=== PATIENT | male | born 1950 | race Caucasian/White ===

== ENCOUNTER 2016-09-15 15:07 | Observation (INO) | payer OTHER ==
[~2016-09-15] VITALS: Ht 175.3 cm; Wt 97.0 kg
[~2016-09-15 15:07] MED LIST: ALPR.25 PO; ASPI81TA82 PO; CEPH500C3 PO; CORE25TA PO; COUM5TAB PO; DIGO.125 PO; ENAL10TA7 PO; FURO20TA PO; GEMF600 PO; GLUC10TA3 PO; LANTUS2P SC; NITR.2T TD; NITR0.3D TD; NITR0.4S SL; NOVOLOGP2 SQ; RANO500 PO; SIMV20 PO; TRAM100T19 PO
[2016-09-15 15:15] VITALS: BP 128/83; PULSE 75; RESP 22; TEMP 98.3; O2SAT 89
[2016-09-15 15:20] VITALS: RESP 20; O2SAT 90
[2016-09-15] MEDS ORDERED: SODIUM CHLORIDE 0.9% FLUSH 5 ML FLUSH IVF PRN ×3 (15:30→18:15)
--- NOTE | 2016-09-15 15:43 | PD ---
HPI Chief Complaint: Chest Pain Time Seen by Provider: 15:41 Travel History International Travel<30 days: No Contact w/Intl Traveler<30days: No Traveled to known affect area: No History of Present Illness HPI Patient comes in complaining of left-sided chest pain that began around 7:30 this morning. Patient's pain is constant however does intensify from time to time. The patient reports associated shortness of breath and diaphoresis with this. Denies any nausea, vomiting, or headache. Patient reports left arm and neck tingling sensation similar to previous heart attacks. Patient reports he took his aspirin this morning and has a nitroglycerin patch on this had no change in his symptoms. Patient's last cardiac catheter was November [address] Barros. Patient has a AICD in place but denies any firing of the defibrillator. Patient was also reports his blood sugars have not been well controlled secondary to insurance and not being able to get his medication and is been running in the 300s. PFSH Past Medical History Arthritis: No Asthma: No Blood Disorders: No Anxiety: No Depression: No Heart Rhythm Problems: Yes Cancer: No Cardiac Catheterization: Yes (X25) Cardiovascular Problems: Yes (EF LESS THAN 30%, AFIB, CAD, [place], 2 CORONARY STENTS 1995, CABG 2001) High Cholesterol: Yes Chest Pain: Yes Congestive Heart Failure: Yes COPD: No Cerebrovascular Accident: No Diabetes: Yes Patient Takes Glucophage: No Diminished Hearing: No Endocrine: Yes Gastrointestinal Disorders: No GERD: Yes Glaucoma: No Genitourinary: Yes (Kidney Stones) Headaches: No Hepatitis: No Hiatal Hernia: No Hypertension: Yes Immune Disorder: No Implanted Vascular Access Dvce: Yes Kidney Stones: Yes Medical other: Yes (BELLS PALSY LEFT EYE) Musculoskeletal: Yes (Bilateral Back Fusion in 1974) Neurologic: Yes (CVA, [place] Palsy) Psychiatric: No Reproductive: No Respiratory: Yes (SLEEP APNEA WITH CPAP AT NIGHT CHF) Myocardial Infarction: Yes (X3) Renal Failure: No Seizures: No Sickle Cell Disease: No Sleep Apnea: Yes (CPAP at night) Thyroid Disease: No Ulcer: No Tetanus Vaccination: > 5 Years Influenza Vaccination: No Past Surgical History Abdominal Surgery: No AICD: No Body Medical Devices: Pacemaker/AICD Cardiac Surgery: Yes (PACEMAKER/AICD INSERTION X2 [employer] 05/31 ) Coronary Artery Bypass Graft: Yes (CABG X 3 VESSELS 2001) Ear Surgery: No Endocrine Surgery: No Eye Surgery: No Genitourinary Surgery: No Gynecologic Surgery: No Neurologic Surgery: No Oral Surgery: No Pacemaker: No Thoracic Surgery: No Other Surgery: Yes Social History Alcohol Use: Yes (OCCASIONAL BEER) Tobacco Use: No (QUIT 1986) Substance Use: Yes (Marijuana as a child) Allergies-Medications (Allergen,Severity, Reaction): Coded Allergies: No Known Allergies (Verified , 09/15/16) Uncoded Allergies: HAYFEVER (Allergy, Mild, Cough, 07/06/09) Reported Meds & Prescriptions Reported Meds & Active Scripts Active Reported Carvedilol 6.25 Mg Tab 6.25 Mg PO BID Alprazolam 0.25 Mg Tab 0.25 Mg PO TID Aspirin DR (Aspirin) 81 Mg Tabdr 81 Mg PO DAILY Digoxin 0.125 Mg Tab 0.125 Mg PO DAILY Enalapril (Enalapril Maleate) 5 Mg Tab 5 Mg PO BID Furosemide 20 Mg Tab 20 Mg PO DAILY Glipizide 5 Mg Tab 5 Mg PO AC DINNER Take 30 minutes before a meal Glipizide 10 Mg Tab 10 Mg PO DAILYAC Take 30 minutes before a meal Nitro-Dur Patch 24 HR (Nitroglycerin) 0.2 Mg/Hr Patch 0.2 Mg T-DERMAL DAILY Tramadol (Tramadol HCl) 50 Mg Tab 50 Mg PO DAILY Warfarin 5 Mg Tab 5 Mg PO HS Atorvastatin (Atorvastatin Calcium) 40 Mg Tab 40 Mg PO HS Novolin R Inj (Insulin Human Regular) 1,000 Unit/10 Ml Vial Unknown Dose SQ TIDAC Max dose at bedtime:( )units; sugars less than 70,(0) units; sugars 150-199,(5)unit; sugars 200-249,(10)units; sugars 250-299,(15) units; sugars 300-349,(20)units; sugars greater than 349,(25)units Novolin N Inj (Insulin Human NPH) 1,000 Unit/10 Ml Vial 30 Units SQ BID Review of Systems Except as stated in HPI: all other systems reviewed are Neg Physical Exam Narrative GENERAL: Well-developed, overly nourished, in no acute distress, and non-ill appearing. SKIN: Warm and dry. HEAD: Atraumatic. Normocephalic. EYES: Pupils equal and round. EOMI. No scleral icterus. No injection or drainage. ENT: No nasal bleeding or discharge. Mucous membranes pink and moist. NECK: Trachea midline. Supple. No nuclear rigidity. CARDIOVASCULAR: Regular rate and rhythm. No murmur appreciated. Radial pulses 2+, intact, and equal bilaterally. RESPIRATORY: No accessory muscle use. No respiratory distress. Clear to auscultation. Breath sounds equal bilaterally. MUSCULOSKELETAL: No obvious deformities. No clubbing. No cyanosis. No edema. Full range of motion. NEUROLOGICAL: Awake and alert. No obvious cranial nerve deficits. Motor grossly within normal limits. Normal speech. PSYCHIATRIC: Appropriate mood and affect; insight and judgment normal. Data Data Last Documented VS Vital Signs Date Time Temp Pulse Resp B/P Pulse Ox O2 Delivery O2 Flow Rate FiO2 09/15/16 15:20 20 90 Room Air 09/15/16 15:20 2 09/15/16 15:15 98.3 75 128/83 Orders Electrocardiogram (09/15/16 15:24) B-Type Natriuretic Peptide (09/15/16 15:24) Complete Blood Count With Diff (09/15/16 15:24) Comprehensive Metabolic Panel (09/15/16 15:24) Prothrombin Time / Inr (Pt) (09/15/16 15:24) Chest, Single Ap (09/15/16 15:24) Ecg Monitoring (09/15/16 15:24) Iv Access Insert/Monitor (09/15/16 15:24) Oximetry (09/15/16 15:24) Oxygen Administration (09/15/16 15:24) Sodium Chloride 0.9% Flush (Ns Flush) (09/15/16 15:30) Ckmb (Isoenzyme) Profile (09/15/16 15:23) Magnesium (Mg) (09/15/16 15:23) Act Partial Throm Time (Ptt) (09/15/16 15:23) Troponin I (09/15/16 15:23) Bilateral Bp Monitoring (09/15/16 15:23) Sodium Chloride 0.9% Flush (Ns Flush) (09/15/16 15:30) Morphine Inj (Morphine Inj) (09/15/16 17:15) Ondansetron Inj (Zofran Inj) (09/15/16 17:15) Admit Order (Ed Use Only) (09/15/16 18:11) Labs Laboratory Tests Test 09/15/16 15:45 White Blood Count 10.0 TH/MM3 Red Blood Count 6.15 MIL/MM3 Hemoglobin 17.6 GM/DL Hematocrit 52.4 % Mean Corpuscular Volume 85.2 FL Mean Corpuscular Hemoglobin 28.6 PG Mean Corpuscular Hemoglobin 33.6 % Concent Red Cell Distribution Width 14.0 % Platelet Count 231 TH/MM3 Mean Platelet Volume 9.0 FL Neutrophils (%) (Auto) 59.4 % Lymphocytes (%) (Auto) 29.5 % Monocytes (%) (Auto) 8.4 % Eosinophils (%) (Auto) 1.4 % Basophils (%) (Auto) 1.3 % Neutrophils # (Auto) 6.0 TH/MM3 Lymphocytes # (Auto) 3.0 TH/MM3 Monocytes # (Auto) 0.8 TH/MM3 Eosinophils # (Auto) 0.1 TH/MM3 Basophils # (Auto) 0.1 TH/MM3 CBC Comment DIFF FINAL Differential Comment Prothrombin Time 14.0 SEC Prothromb Time International 1.3 RATIO Ratio Activated Partial 28.1 SEC Thromboplast Time Sodium Level 139 MEQ/L Potassium Level 3.8 MEQ/L Chloride Level 99 MEQ/L Carbon Dioxide Level 33.3 MEQ/L Anion Gap 7 MEQ/L Blood Urea Nitrogen 20 MG/DL Creatinine 1.07 MG/DL Estimat Glomerular Filtration 70 ML/MIN Rate Random Glucose 74 MG/DL Calcium Level 8.7 MG/DL Magnesium Level 2.3 MG/DL Total Bilirubin 0.7 MG/DL Aspartate Amino Transf 17 U/L (AST/SGOT) Alanine Aminotransferase 34 U/L (ALT/SGPT) Alkaline Phosphatase 59 U/L Total Creatine Kinase 96 U/L Troponin I LESS THAN 0.02 NG/ML B-Type Natriuretic Peptide 6 PG/ML Total Protein 8.0 GM/DL Albumin 4.0 GM/DL MDM Medical Decision Making Medical Screen Exam Complete: Yes Emergency Medical Condition: Yes Interpretation(s) EKG reviewed by Dr. Gomes shows ventricular paced rhythm at 72. No STEMI. Differential Diagnosis Acute coronary syndrome, pneumonia, CHF, chest pain, unstable angina, other Narrative Course Patient's exam. Initial laboratory neurological status were obtained and reviewed. Discussed patient with Dr. Gomes, who saw and evaluated the patient recommends having the patient admitted. Discussed All Findings and Plans of Care with Patient Who Is Agreeable for Admission. All Questions Were Answered. Physician Communication Physician Communication [phone] Salgado ror engineer on-call for Dr. Barros, who recommends having patient placed in the chest pain center for further treatment and evaluation. Diagnosis Primary Impression: Chest pain Qualified Code: R07.9 - Chest pain, unspecified type Admitting Information Admitting Physician Requests: Observation Condition: Stable Eagle Bowman Sep 15, 2016 15:43
--- NOTE | 2016-09-15 15:54 | RADRPT ---
EXAM DATE/TIME: 09/15/2016 15:26 [facility] COMPARISON: CHEST SINGLE AP, June 11, 2015, 18:14. INDICATIONS : Chest pain. MEDICAL HISTORY : Chronic obstructive pulmonary disease. SURGICAL HISTORY : CABG. Pacemaker. ENCOUNTER: Subsequent ACUITY: 2 days PAIN SCORE: 5/10 LOCATION: Left middle chest FINDINGS: Prior median sternotomy CABG is appreciated with AICD pacing device overlying the left hemithorax unc hanged. Lung sung are clear CONCLUSION: No acute disease. No significant change has occurred. Stan Floyd MD on September 15, 2016 at 15:52 Board Certified Radiologist. This report was verified electronically.
[2016-09-15 16:03] LABS: BASOPHIL # 0.1 TH/MM3 (0-0.2); BASOPHIL % 1.3 % (0.0-2.0); EOSINOPHIL # 0.1 TH/MM3 (0-0.4); EOSINOPHIL % 1.4 % (0.0-4.0); HEMATOCRIT 52.4 % (39.0-51.0); HEMO FLAGS DIFF FINAL; LYMPH % 29.5 % (9.0-44.0); MEAN CELL VOLUME 85.2 FL (80.0-100.0); MEAN CORPUSCULAR HEMOGLOBIN 28.6 PG (27.0-34.0); MEAN CORPUSCULAR HGB CONC 33.6 % (32.0-36.0); MONO % 8.4 % (0.0-8.0); NEUT % 59.4 % (16.0-70.0); PLATELET COUNT 231 TH/MM3 (150-450); RED BLOOD COUNT 6.15 MIL/MM3 (4.50-5.90)
[2016-09-15 16:13] LABS: APTT (PATIENT) 28.1 SEC (24.3-30.1)
[2016-09-15 16:19] LABS: INTERNATIONAL NORMALIZED RATIO 1.3 RATIO
[2016-09-15 16:30] LABS: ALKALINE PHOSPHATASE 59 U/L (45-117); ALT (GPT) 34 U/L (12-78); ANION GAP 7 MEQ/L (5-15); AST (GOT) 17 U/L (15-37); BICARBONATE 33.3 MEQ/L (21.0-32.0); BLOOD UREA NITROGEN 20 MG/DL (7-18); CHLORIDE 99 MEQ/L (98-107); GLOMERULAR FILTRATION RATE 70 ML/MIN (>89); POTASSIUM 3.8 MEQ/L (3.5-5.1); SODIUM (NA) 139 MEQ/L (136-145); TOTAL BILIRUBIN ADULT 0.7 MG/DL (0.2-1.0)
[2016-09-15] MEDS ORDERED: NOVORP2 SQ (16:34)
[2016-09-15] MEDS ORDERED: NOVONP2 SQ (16:34)
[2016-09-15] MEDS ORDERED: WARF-23 PO (16:40)
[2016-09-15] MEDS ORDERED: GLIP10TA6 PO (16:40)
[2016-09-15] MEDS ORDERED: TRAM50TA PO (16:40)
[2016-09-15] MEDS ORDERED: FURO20TA PO (16:40)
[2016-09-15] MEDS ORDERED: ATOR40TA16 PO (16:40)
[2016-09-15] MEDS ORDERED: DIGO0.12 PO (16:40)
[2016-09-15] MEDS ORDERED: ENAL5TAB PO (16:40)
[2016-09-15] MEDS ORDERED: NITR0.2D T-DERMAL (16:40)
[2016-09-15] MEDS ORDERED: GLIP5TAB8 PO (16:40)
[2016-09-15] MEDS ORDERED: ALPR0.25 PO (16:42)
[2016-09-15] MEDS ORDERED: ASPI81TA5 PO (16:42)
[2016-09-15] MEDS ORDERED: CARV6.252 PO (17:01)
[2016-09-15] MEDS ORDERED: ONDANSETRON HCL 4 MG/2 ML VIAL IV PUSH ONE (17:15)
[2016-09-15] MEDS ORDERED: MORPHINE SULFATE 4 MG/ML INJ IV PUSH ONE (17:15)
[2016-09-15 17:16] LABS: MAGNESIUM 2.3 MG/DL (1.5-2.5)
[2016-09-15 17:17] LABS: CREATINE KINASE 96 U/L (39-308)
--- NOTE | 2016-09-15 18:26 | PD ---
Physical Exam Date Seen by Provider: Sep 15, 2016 Time Seen by Provider: 17:00 Narrative I, Dr. Gomes, have reviewed the advance practice practitioner's documentation and am in agreement, met with the patient face to face, made the diagnosis, and the medical decision making was done by me. *My assessment and Findings: Patient seen and evaluated with PA, please see PA note for further details. Patient was extensive cardiac history here with chest pain. EKG did not show any signs of acute ST-T changes. Laboratory Tests Test 09/15/16 15:45 Red Blood Count 6.15 MIL/MM3 (4.50-5.90) Hemoglobin 17.6 GM/DL (13.0-17.0) Hematocrit 52.4 % (39.0-51.0) Monocytes (%) (Auto) 8.4 % (0.0-8.0) Prothrombin Time 14.0 SEC (9.8-11.6) Carbon Dioxide Level 33.3 MEQ/L (21.0-32.0) Blood Urea Nitrogen 20 MG/DL (7-18) Estimat Glomerular Filtration 70 ML/MIN (>89) Rate Troponin I LESS THAN 0.02 NG/ML (0.02-0.05) Last 24 hours Impressions Chest X-Ray 09/15/16 1524 Signed Impressions: Service Date/Time: Thursday, September 15, 2016 15:26 - CONCLUSION: No acute disease. No significant change has occurred. Stan Floyd MD Chest x-ray and cardiac enzymes negative. The case was discussed with patient' s hand shoes sewer who would like the patient to be admitted to chest pain center for further treatment. He was given aspirin, nitroglycerin, and morphine. Data Data Last Documented VS Vital Signs Date Time Temp Pulse Resp B/P Pulse Ox O2 Delivery O2 Flow Rate FiO2 09/15/16 15:20 20 90 Room Air 09/15/16 15:20 2 09/15/16 15:15 98.3 75 128/83 Orders Electrocardiogram (09/15/16 15:24) B-Type Natriuretic Peptide (09/15/16 15:24) Complete Blood Count With Diff (09/15/16 15:24) Comprehensive Metabolic Panel (09/15/16 15:24) Prothrombin Time / Inr (Pt) (09/15/16 15:24) Chest, Single Ap (09/15/16 15:24) Ecg Monitoring (09/15/16 15:24) Iv Access Insert/Monitor (09/15/16 15:24) Oximetry (09/15/16 15:24) Oxygen Administration (09/15/16 15:24) Sodium Chloride 0.9% Flush (Ns Flush) (09/15/16 15:30) Ckmb (Isoenzyme) Profile (09/15/16 15:23) Magnesium (Mg) (09/15/16 15:23) Act Partial Throm Time (Ptt) (09/15/16 15:23) Troponin I (09/15/16 15:23) Bilateral Bp Monitoring (09/15/16 15:23) Sodium Chloride 0.9% Flush (Ns Flush) (09/15/16 15:30) Morphine Inj (Morphine Inj) (09/15/16 17:15) Ondansetron Inj (Zofran Inj) (09/15/16 17:15) Admit Order (Ed Use Only) (09/15/16 18:11) Labs Laboratory Tests Test 09/15/16 15:45 White Blood Count 10.0 TH/MM3 Red Blood Count 6.15 MIL/MM3 Hemoglobin 17.6 GM/DL Hematocrit 52.4 % Mean Corpuscular Volume 85.2 FL Mean Corpuscular Hemoglobin 28.6 PG Mean Corpuscular Hemoglobin 33.6 % Concent Red Cell Distribution Width 14.0 % Platelet Count 231 TH/MM3 Mean Platelet Volume 9.0 FL Neutrophils (%) (Auto) 59.4 % Lymphocytes (%) (Auto) 29.5 % Monocytes (%) (Auto) 8.4 % Eosinophils (%) (Auto) 1.4 % Basophils (%) (Auto) 1.3 % Neutrophils # (Auto) 6.0 TH/MM3 Lymphocytes # (Auto) 3.0 TH/MM3 Monocytes # (Auto) 0.8 TH/MM3 Eosinophils # (Auto) 0.1 TH/MM3 Basophils # (Auto) 0.1 TH/MM3 CBC Comment DIFF FINAL Differential Comment Prothrombin Time 14.0 SEC Prothromb Time International 1.3 RATIO Ratio Activated Partial 28.1 SEC Thromboplast Time Sodium Level 139 MEQ/L Potassium Level 3.8 MEQ/L Chloride Level 99 MEQ/L Carbon Dioxide Level 33.3 MEQ/L Anion Gap 7 MEQ/L Blood Urea Nitrogen 20 MG/DL Creatinine 1.07 MG/DL Estimat Glomerular Filtration 70 ML/MIN Rate Random Glucose 74 MG/DL Calcium Level 8.7 MG/DL Magnesium Level 2.3 MG/DL Total Bilirubin 0.7 MG/DL Aspartate Amino Transf 17 U/L (AST/SGOT) Alanine Aminotransferase 34 U/L (ALT/SGPT) Alkaline Phosphatase 59 U/L Total Creatine Kinase 96 U/L Troponin I LESS THAN 0.02 NG/ML B-Type Natriuretic Peptide 6 PG/ML Total Protein 8.0 GM/DL Albumin 4.0 GM/DL [facility] Medical Record Reviewed: Yes Supervised Visit with MADELINE: Yes Diagnosis Primary Impression: Chest pain Qualified Code: R07.9 - Chest pain, unspecified type Admitting Information Admitting Physician Requests: Admit Condition: Stable Delphine Gomes MD Sep 15, 2016 18:26
[2016-09-15 18:44] VITALS: BP 115/74; PULSE 72; RESP 20; O2SAT 95
[2016-09-15 19:00] VITALS: BP 118/70; PULSE 66; RESP 20; O2SAT 98
[2016-09-15] MEDS ORDERED: GLUCAGON 1 MG/ML VIAL OTHER PRN (19:00)
[2016-09-15] MEDS ORDERED: DEXTROSE 50% IN WATER 50 ML VIAL(D50) IV PUSH PRN (19:00)
[2016-09-15 20:26] LABS: CREATINE KINASE 70 U/L (39-308)
[2016-09-15 21:00] VITALS: BP 104/73; PULSE 69; RESP 20; O2SAT 96
[2016-09-15] MEDS: WARFARIN SOD 5 MG TAB PO SCH ×3 (21:00→22:18)
[2016-09-15] MEDS: CARVEDILOL 6.25 MG TAB PO SCH ×2 (21:00→21:52)
[2016-09-15] MEDS ORDERED: ATORVASTATIN 40 MG TAB PO SCH (21:00)
[2016-09-15] MEDS: ENALAPRIL MALEATE 5 MG TAB PO SCH (21:52)
[2016-09-15] MEDS: SODIUM CHLORIDE 0.9% FLUSH 5 ML FLUSH IVF SCH (21:52)
[2016-09-15] MEDS: INSULIN ASPART SUPPLEMENTAL SCALE SQ SCH (21:52)
[2016-09-15 23:01] LABS: CREATINE KINASE 66 U/L (39-308)
[2016-09-16] VITALS (7 sets, daily range): BP systolic 116–129; BP diastolic 67–81; PULSE 59–88; RESP 18–21; TEMP 98–98.7; O2SAT 93–98
[2016-09-16 04:31] LABS: AUTOMATED NEUTROPHIL # 5.2 TH/MM3 (1.8-7.7); BASOPHIL # 0.1 TH/MM3 (0-0.2); BASOPHIL % 1.1 % (0.0-2.0); EOSINOPHIL # 0.1 TH/MM3 (0-0.4); EOSINOPHIL % 1.6 % (0.0-4.0); HEMATOCRIT 48.7 % (39.0-51.0); HEMO FLAGS DIFF FINAL; LYMPHOCYTE # 2.7 TH/MM3 (1.0-4.8); MEAN CORPUSCULAR HGB CONC 32.6 % (32.0-36.0); NEUT % 58.3 % (16.0-70.0); PLATELET COUNT 192 TH/MM3 (150-450); RED BLOOD COUNT 5.67 MIL/MM3 (4.50-5.90); RED CELL DISTRIBUTION WIDTH 14.6 % (11.6-17.2); WHITE BLOOD COUNT 8.9 TH/MM3 (4.0-11.0)
[2016-09-16] MEDS: INSULIN ASPART SUPPLEMENTAL SCALE SQ SCH ×2 (06:00→12:39)
[2016-09-16] MEDS ORDERED: FUROSEMIDE 20 MG TAB PO SCH (09:00)
[2016-09-16] MEDS ORDERED: DIGOXIN 0.125 MG TAB PO SCH (09:00)
[2016-09-16] MEDS: SODIUM CHLORIDE 0.9% FLUSH 5 ML FLUSH IVF SCH (09:17)
[2016-09-16] MEDS: ENALAPRIL MALEATE 5 MG TAB PO SCH (09:17)
[2016-09-16] MEDS: CARVEDILOL 6.25 MG TAB PO SCH (09:56)
[2016-09-16] MEDS ORDERED: AMLO5TAB2 PO (10:41)
--- NOTE | 2016-09-16 10:43 | HHI.DCPOC ---
Discharge Care Plan Diagnosis: (1) Hx of coronary artery disease (2) Type 2 diabetes mellitus (3) Anginal pain Goals to Promote Your Health * To prevent worsening of your condition and complications * To maintain your health at the optimal level Directions to Meet Your Goals Take your medications as prescribed Follow your dietary instruction Follow activity as directed Keep your appointments as scheduled Take your immunizations and boosters as scheduled If your symptoms worsen call your PCP, if no PCP go to Urgent Care Center or Emergency Room Smoking is Dangerous to Your Health. Avoid second hand smoke Call the 24-hour hour crisis hotline for domestic abuse at [place] Sep 16, 2016 10:43
--- NOTE | 2016-09-16 10:45 | EKG ---
Date Performed: 09/15/2016 Time Performed: 21:41:33 PTAGE: 65 years EKG: ELECTRONIC VENTRICULAR PACEMAKER ABNORMAL RHYTHM ECG Since PREVIOUS TRACING , no significant change noted DOCTOR: Dalia Gunter Interpretating Date/Time 09/16/2016 10:44:46
--- NOTE | 2016-09-16 10:46 | EKG ---
Date Performed: 09/15/2016 Time Performed: 18:42:53 PTAGE: 65 years EKG: ELECTRONIC ATRIAL PACEMAKER ELECTRONIC VENTRICULAR PACEMAKER ABNORMAL RHYTHM ECG Since PREVIOUS TRACING , no significant change noted PREVIOUS TRACIN09/15/2016 15.15 DOCTOR: Dalia Gunter Interpretating Date/Time 09/16/2016 10:45:37
--- NOTE | 2016-09-16 10:46 | EKG ---
Date Performed: 09/15/2016 Time Performed: 15:15:58 PTAGE: 65 years EKG: ELECTRONIC VENTRICULAR PACEMAKER ABNORMAL RHYTHM ECG Since PREVIOUS TRACING , no significant change noted PREVIOUS TRACIN06/12/2015 05.50 DOCTOR: Dalia Gunter Interpretating Date/Time 09/16/2016 10:46:02
--- NOTE | 2016-09-16 16:17 | MH ---
cc: HE BREWER MD DATE OF ADMISSION: 09/15/2016 DATE OF : 1950 CHIEF COMPLAINT Chest pain. HISTORY OF PRESENT ILLNESS This is a 65-year-old patient with known coronary artery disease including a CABG, defibrillator and a pacemaker and ischemic cardiomyopathy. He presented to the emergency room with increasing chest tightness in his left anterior chest over the past month. He states his chest discomfort is similar to his heart attacks in the past. There is radiation to his left shoulder and tightness to his left jaw. Duration yesterday lasted approximately four hours. Associated symptoms included shortness of breath and diaphoresis. No nausea or vomiting. Precipitating factors are nonexertional. No known relieving factors. The patient follows with Dr. Nitin Barros. PAST MEDICAL HISTORY 1. Coronary artery disease. 2. Class IV angina. 3. Diabetes. 4. Hypertension. 5. Congestive heart failure. 6. GERD. 7. Peck's palsy. 8. CVA. 9. [place] x3 10. He uses BiPAP at night for sleep apnea. 11. Kidney stones in the past. PAST SURGICAL HISTORY 1. CABG in 2001, three vessels. 2. Defibrillator and pacemaker placed. 3. Bilateral back fusion. 4. Sinus surgery. SOCIAL HISTORY He is disabled. Quit smoking in the late . He denies any alcohol or illegal drug use. Reports he is sedentary. Does have known hypertension, diabetes and hyperlipidemia. PAST CARDIAC TESTING He follows with Dr. Barros. He had a cardiac catheterization 11/07/2014. He has not had a recent stress test and is due to follow with Dr. Barros in two weeks. As far as the cardiac catheterization conclusions the cath report read: 1. Mildly elevated left ventricular end-systolic pressure. 2. Severely impaired LV function. 3. Triple-vessel coronary artery disease. 4. 3/3 patent bypass grafts. 5. Patient has ischemia from small vessel disease. This probably includes the first septal community service coordinator branch which is trapped as described above, the small distal circumflex vessel, and perhaps acute marginal branch of the right coronary artery. These will all needed to be treated medically. There is no further revascularization that could be performed at this time. 6. Regarding his ventricular arrhythmias, consider to put him on amiodarone and possibly an ablation in the future. ALLERGIES He has no known allergies. MEDICATIONS Current medications include: 1. Aspirin 81 mg daily. 2. Furosemide 20 mg daily. 3. Carvedilol 6.25 mg b.i.d. 4. Enalapril 5 mg b.i.d. 5. Digoxin 0.125 mg daily. 6. Warfarin 5 mg at bedtime. 7. Atorvastatin 40 mg at bedtime. 8. Novolin N sliding scale 15 minutes before meals. 9. Novolin N 30 units b.i.d. 10. Glipizide 10 mg in the a.m. and 5 mg in the p.m. 11. Xanax 0.25 mg t.i.d. as needed. 12. Nitro transdermal patch 0.2 mg every hour. 13. Tramadol 50 mg p.r.n. REVIEW OF SYSTEMS GENERAL: No fatigue, recent illness, fevers, chills. HEENT: No headache or visual changes or dysphagia. CARDIOVASCULAR: As stated above. He has been wearing a nitro patch daily and sometimes two patches daily for his chest pain. RESPIRATORY: No shortness of breath, cough, wheeze, hemoptysis. GASTROINTESTINAL: No nausea, vomiting or bowel changes, diarrhea or constipation, blood in the stool or dark stool. GENITOURINARY: No dysuria. EXTREMITIES: No lower leg pain. Intermittent lower leg edema. MUSCULOSKELETAL: No change in range of motion. Full range of motion. NEUROLOGIC: No difficulty with balance, motor or sensory deficits, loss of consciousness. PSYCHIATRIC: No anxiety or depression. SKIN: No concerning lesions or rashes. ENDOCRINE: States his blood sugars range normally well above 200, sometimes in the 300 range. He has newly established with a new primary care provider and set to see him and two weeks. This will be Dr. Carroll. Prior to that he was following with [facility]. PHYSICAL EXAMINATION GENERAL: An alert, moderately obese, well-developed. in no acute distress male. HEAD: Normocephalic, atraumatic. EYES: Sclera clear. Conjunctiva without injection. ENT: Mucous membranes are pink and moist. NECK: Supple. Trachea is midline. There are no masses. CARDIOVASCULAR: Without murmur, rub or gallop. S1, S2. He is AV paced. No carotid bruits appreciated. All extremities are of equal temperature and have palpable pulses. PULMONARY: Clear lungs throughout bilaterally with no crackles, wheeze or rhonchi. He is non-labored. Symmetrical chest rise. ABDOMEN: Obese, soft, nontender, nondistended. Positive bowel tones. EXTREMITIES: Pulses +1 x4. Normal tone x4. No obvious deformities. NEUROLOGIC: Cranial nerves II through XII grossly intact. Motor strength 5/5. PSYCHIATRIC: Alert, oriented x3, has a pleasant affect. Appropriate to mood, insight and judgment. SKIN: Normal turgor. Normal texture. There are no lesions or rashes. Warm and dry. LABORATORY CBC is unremarkable. Chemistry has a carbon dioxide of 33.3, BUN of 20, estimated GFR of 70, otherwise unremarkable. BNP is 6. Coagulation is unremarkable. INR is 1.3. The patient has not been taking his warfarin over the last 3-4 days as he ran out, and recently started taking warfarin yesterday. EKG Three EKGs showed a ventricular paced rhythm. IMAGING Chest x-ray read by the radiologist as a conclusion of no acute disease. No significant change has occurred. ASSESSMENT AND PLAN 1. Chest pain: The patient has been admitted to the chest pain center, was ruled out with three sets of EKGs and cardiac enzymes. He was seen and evaluated by Dr. He Brewer. The patient's copper etcher is out of town this week. This has been discussed with the patient at length. The patient would prefer to follow-up with Dr. Barros this coming Thursday once he returns to [facility] [address]. Will add amlodipine 5 mg daily to his medication regimen. Discussed with the patient his chest pain most likely is progressive angina pain and to follow up with Dr. Barros to see if he would continue to medically manage him or catheterization would need to be done at that time. The patient is agreeable to this plan of care. He has been instructed at length to return to the emergency room for crushing or progressive chest pain and he verbalizes understanding. 2. Diabetes: Sliding scale insulin. The patient is encouraged to follow-up with his primary care provider as scheduled within the next couple of weeks regarding his concern of unable to manage his blood sugar appropriately. Dictated by: TEMO Cm Carisa Jose/ALEC /1:41 PM /4:14 PM
== END 2016-09-16 14:44 | disposition home or self-care (01) ==
LOC: NEPC 15:07 → NEDH 18:13 → NEPHCDU 09-16 01:36
PROVIDERS: ADMIT Internal Medicine Interventional Cardiology; ATTEND Internal Medicine Interventional Cardiology
DX: R07.89 Other chest pain (principal); I25.10 Atherosclerotic heart disease of native coronary artery without angina pectoris; I48.91 Unspecified atrial fibrillation; I25.5 Ischemic cardiomyopathy; I50.9 Heart failure, unspecified; I10 Essential (primary) hypertension; I25.2 Old myocardial infarction; E78.5 Hyperlipidemia, unspecified; E11.9 Type 2 diabetes mellitus without complications; E78.00 Pure hypercholesterolemia, unspecified; G47.30 Sleep apnea, unspecified; K21.9 Gastro-esophageal reflux disease without esophagitis; Z95.1 Presence of aortocoronary bypass graft; Z95.5 Presence of coronary angioplasty implant and graft; Z95.810 Presence of automatic (implantable) cardiac defibrillator; Z79.84 Long term (current) use of oral hypoglycemic drugs; Z79.01 Long term (current) use of anticoagulants; Z86.73 Personal history of transient ischemic attack (TIA), and cerebral infarction without residual deficits; Z87.442 Personal history of urinary calculi; Z87.891 Personal history of nicotine dependence; Z98.1 Arthrodesis status
CPT/HCPCS: 71010; 80053; 82550; 82948; 83735; 83880; 84484; 85025; 85610; 85730; 93005; 96374; 96375; 99285; G0378; J1815; J2270; J2405

== ENCOUNTER 2018-01-14 05:58 | Day surgery (SDC) | payer OTHER ==
[~2018-01-14] VITALS: Ht 175.3 cm; Wt 92.1 kg
[~2018-01-14 05:58] MED LIST changes: -ALPR.25 PO; -ASPI81TA82 PO; +ATOR40TA16 PO; +CARV6.252 PO; -CEPH500C3 PO; -CORE25TA PO; -COUM5TAB PO; -DIGO.125 PO; +DIGO0.12 PO; +ECASA81 PO; -ENAL10TA7 PO; -GEMF600 PO; +GLIP10TA6 PO; +GLIP5TAB8 PO; -GLUC10TA3 PO; -LANTUS2P SC; +LEVEMIR SQ; -NITR.2T TD; +NITR0.2D T-DERMAL; -NITR0.3D TD; -NITR0.4S SL; +SACU1TAB PO; -SIMV20 PO; -TRAM100T19 PO; +TRAM50TA PO; +WARF-23 PO
[2018-01-14] MEDS ORDERED: IOHEXOL 350 MG/ML 50 ML BTL (for Cath Lab) OTHER ONE (05:59)
[2018-01-14] MEDS ORDERED: IOHEXOL 350 MG/ML 100 ML BTL (for Cath Lab) OTHER ONE (05:59)
[2018-01-14] MEDS ORDERED: NS 1000P @30 MLS/HR (KVO) IV SCH (06:15)
[2018-01-14] MEDS ORDERED: ASPIRIN 325 MG TAB PO SCH (06:15)
[2018-01-14] MEDS ORDERED: HEPARIN-NS/PF INJ 1,500 ML ONE (06:53)
[2018-01-14 06:55] VITALS: BP 97/65; PULSE 80; RESP 18; TEMP 98.8
[2018-01-14 07:09] LABS: AUTOMATED NEUTROPHIL # 5.4 TH/MM3 (1.8-7.7); BASOPHIL # 0.1 TH/MM3 (0-0.2); BASOPHIL % 0.7 % (0.0-2.0); EOSINOPHIL % 0.7 % (0.0-4.0); HEMATOCRIT 46.9 % (39.0-51.0); HEMOGLOBIN 15.4 GM/DL (13.0-17.0); LYMPH % 12.7 % (9.0-44.0); LYMPHOCYTE # 0.9 TH/MM3 (1.0-4.8); MEAN CELL VOLUME 88.2 FL (80.0-100.0); MEAN CORPUSCULAR HGB CONC 32.9 % (32.0-36.0); MEAN PLATELET VOLUME 8.9 FL (7.0-11.0); MONO % 7.6 % (0.0-8.0); MONOCYTE # 0.5 TH/MM3 (0-0.9); NEUT % 78.3 % (16.0-70.0); PLATELET COUNT 161 TH/MM3 (150-450); RED BLOOD COUNT 5.31 MIL/MM3 (4.50-5.90); RED CELL DISTRIBUTION WIDTH 14.1 % (11.6-17.2); WHITE BLOOD COUNT 6.9 TH/MM3 (4.0-11.0)
[2018-01-14] MEDS ORDERED: MIDAZOLAM HCL 2 MG/2 ML VIAL ONE ×3 (07:13→08:14)
[2018-01-14] MEDS ORDERED: NITROGLYCERIN INJ 5 ML ONE (07:13)
[2018-01-14] MEDS ORDERED: HEPARIN SODIUM - IV 10,000 UNITS/10 ML VIAL ONE (07:13)
[2018-01-14] MEDS ORDERED: APIX5TAB PO (07:15)
[2018-01-14] MEDS ORDERED: NITR0.4D T-DERMAL (07:15)
[2018-01-14] MEDS ORDERED: NITR0.4S SL (07:15)
[2018-01-14 07:20] LABS: INTERNATIONAL NORMALIZED RATIO 1.1 RATIO; PROTHROMBIN TIME - PATIENT 11.3 SEC (9.8-11.6)
[2018-01-14 07:24] LABS: BICARBONATE 30.4 MEQ/L (21.0-32.0); CALCIUM 8.8 MG/DL (8.5-10.1); CREATININE 1.12 MG/DL (0.60-1.30)
[2018-01-14] MEDS ORDERED: ASPIRIN 81 MG CHEW TAB ONE ×2 (07:27→07:31)
[2018-01-14] MEDS ORDERED: VERAPAMIL HCL 5 MG/2 ML VIAL ONE (07:33)
[2018-01-14] MEDS ORDERED: CLOPIDOGREL 300 MG TAB ONE (08:38)
--- NOTE | 2018-01-14 08:56 | CATHPROC ---
[facility] HIS Report Study Information Study Number Admission Scheduled Start Study Start [id number] Jan 14 2018 5:58AM 01/14/2018 Jan 14 2018 6:54AM [place] Service Cardiac Catheterization Admit Source Facility Department Other [facility] - Product Marketer Physician and Clinical Staff Initial Nitin Dow Central Supply Supervisor Bijan Hebert,RN Recorder Mihaela Manzo ,RT(R) Scrub Myah Floyd,RT(R) Procedures Performed Procedure Location (Site) Vessel Name Coronary Angiograms LCA Left Coronary Coronary Angiograms RCA Right Coronary Coronary Angiograms SVG-LAD Left Coronary Coronary Angiograms SVG-RCA Right Coronary Drug Eluting Inflatio CIRC Dist CIRC L Heart Cath PTCA CIRC Dist CIRC Wire insertion Radial (right) Radial Art. Equipment Time Qa Tech Description Size Mfg Part Number Used/Scraped TRANSDUCER, TRUWAVE [id number] 07:01 CORDOBA MORALES * Used W/STOCKCOCK *[id number] *[id number] [id number] *[id number] 07:01 MALLINCKRODT SYRINGE, ANGIOMAT 150ML 150ML *[id number] Used 2SUB [id number] 07:01 Compass-EOS PACK, CCL CUSTOM * Used *[id number] 07:01 Compass-EOS SUPPORT, ARTERIAL ADULT 59986 *[id number] Used [id number] 07:01 Carousell PACER PEN, SKIN DUAL W/ RULER * Used *[id number] 08:19 MEDTRONIC BALLOON, 2.0 X 15MM EUPHORA 15MM Used *[id number] BALLOON, 2.25 X 8MM NC [id number] 08:33 MEDTRONIC 8MM Used EUPHORA *[id number] 08:28 MEDTRONIC STENT, 2.25 15MM TAMARA 2.25 15MM [id number] Used [id number] 08:13 MEDTRONIC/AVE EBU 3.5 Z2 GUIDE CATHETER FR 6 Used *[id number] 08:25 Clarimedix 30 JOSE G INDEFLATOR Used *[id number] BAND, RADIAL COMPRESSION TR [id number] 08:51 AVG Technologies MEDICAL 24CM Used SHORT 24 *[id number] 07:01 Clarimedix WIRE, EXCHANGE 260CM 3MMJ 260CM Used *[id number] 07:01 NAMIC MANIFOLD, 4 PORT * Used *[id number] 07:01 NYCOMED OMNIPAQUE, 350 MG, 100ML 100ML [id number] Used 08:22 NYCOMED OMNIPAQUE, 350 MG, 50ML 50ML [id number] Used [id number] 07:01 Polatis BLANKET,WARM AIR CCL * Used *[id number] 07:01 Polatis JELCO NEEDLE 4056 *[id number] Used CATHETER, FR5 OPTITORQUE [id number] 07:32 TERCycloMedia TechnologyO EquityMetrix FR 5 Used RADIAL TIG 4.0 *[id number] SHEATH, FR6 TRANSRADIAL [id number] 07:01 TERiZettle FR 6 Used SLENDER 10CM *[id number] WIRE, RUNTHROUGH NS FLOPPY [id number] 08:13 TERiZettle 180CM Used .014 180CM *[id number] Equipment Model, Serial, Lot Number and Expiration Data Description Model Number Serial Number Lot Number Expiration Date STENT, 2.25 15MM TAMARA [id number] 09-02-2019 History: Current Medications Medication Dosage/Unit Route Frequency Last Date/Time Taken ASA ELIQUIS Statins (any) NTG Patch NTG SL History: Allergies Allergy Reaction No Known Allergies HAYFEVER Cough History: Risk Factors Family History of Hypertension Dyslipidemia Previous MD Previous Heart Failure Premature CAD Yes Yes Yes No Yes Prior Valve Prior PCI Prior CABG Prior CABGDate Surgery No Yes Yes 04/12/2002 Cerebrovascular Peripheral Artery Chronic Lung On Dialysis Diabetes Disease Disease Disease No Yes Yes Yes Yes History: Stress Tests Stress or Imaging Studies Performed No History: Other Current Smoker Method Quit Packs a Day Years Used Pack Years No Cigarettes 21 Years Ago 1 20 20 Labs Hgb (g/dl) Hct (%) RBC (MIL/MM3) WBC (l/cumm) Platelets (thousands) 11.60-17.00 35.00-51.00 4.00-5.90 4.00-11.00 150.00-450.00 15.4 46.9 5.3 6.9 161 Glucose (mg/dl) BUN (mg/dl) Creatinine (mg/dl) BUN:Creatinine (1:x) 74.00-106.00 7.00-18.00 0.50-1.30 10.00-20.00 206 30 1.1 27.3 Na (meq/l) K (meq/l) 136.00-145.00 3.50-5.10 138 4 INR (PTT:PT) 0.90-1.10 1.1 CPK-MB (ng/ML) 0.50-3.60 Not Drawn Medication Medication Total Dose (Bolus/Oral) Medication Total Dosage/Unit 1% XYLOCAINE 10 mL ASPIRIN 325 mg FENTANYL 50 mcg HEPARIN 5000 units PLAVIX 600 mg RADIAL COCKTAIL 5 mL (Bolus) VERSED 4 mg Medications (Bolus/Oral) Medication Time Given Dosage/Unit Administered By Reason ASPIRIN 01/14/2018 7:30:00 AM 325 mg Emilee, Bijan 325 mg ASPIRIN given in lab by Bijan Hebert RN via Subcutaneous. Ordered by Nitin Barros. VERSED 01/14/2018 7:31:06 AM 1 mg Emilee, Bijan 1 mg VERSED given in lab by Bijan Hebert RN in Left Forearm via Peripheral IV. Ordered by Fe Barros. VERSED 01/14/2018 7:36:32 AM 1 mg Emilee, Bijan 1 mg VERSED given in lab by Bijan Hebert RN in Left Forearm via Peripheral IV. Ordered by Fe Barros. FENTANYL 01/14/2018 7:37:27 AM 50 mcg Emilee, Bijan 50 mcg FENTANYL given in lab by Bijan Hebert RN in Left Forearm via Peripheral IV. Ordered by Nitin Barros. 1% XYLOCAINE 01/14/2018 7:39:58 AM 10 mL Nitin Barros 10 mL 1% XYLOCAINE given in lab by Nitin Barros in Right Radial via Subcutaneous. Ordered by Nitin Barros. Ntg 200mcg Verapamil 2.5mg Heparin RADIAL COCKTAIL 01/14/2018 7:43:46 AM 5 mL (Bolus) Nitin Barros 2500U 5 mL (Bolus) RADIAL COCKTAIL given in lab by Nitin Barros in Right Radial via Radial. Using [Solutio n Name]. Ordered by Nitin Barros. Reason: Ntg 200mcg Verapamil 2.5mg Heparin 2500U. VERSED 01/14/2018 7:45:45 AM 1 mg Emilee, Bijan 1 mg VERSED given in lab by Bijan Hebert RN via Peripheral IV. Ordered by Nitin Barros. VERSED 01/14/2018 8:05:38 AM 1 mg Emilee, Bijan 1 mg VERSED given in lab by Bijan Hebert RN via Peripheral IV. Ordered by Nitin Barros. HEPARIN 01/14/2018 8:17:43 AM 5000 units Bijan Hebert 5000 units HEPARIN given in lab by Bijan Hebert RN in Left Forearm via Peripheral IV. Ordered by Nitin Urbano. PLAVIX 01/14/2018 8:44:14 AM 600 mg Emilee Bijan 600 mg PLAVIX given in lab by Bijan Hebert RN via Oral. Ordered by Nitin Barros. Medication (Drip) Medication Time Given Dosage/Unit Concentration/Unit Diluent (ml) Solution IV Solutions 01/14/2018 7:18:46 AM 50 mL (IV) NaCl .9 Patient arrived on IV Solutions in Left Forearm via Peripheral IV. Pump/Drip Flow using NaCl .9. Initial Case Assessment Cardiovascular HR Rhythm NIBP Chest Pain 76 sr 115/68 0 Edema Present Skin color Skin None Normal Warm Dry Circulatory - Right Pulses Dorsalis Pedis Femoral Radial 2 2 2 Scale (0,1,2,3,4,d) Circulatory - Left Pulses Dorsalis Pedis Femoral Radial 2 2 Scale (0,1,2,3,4,d) Circulatory - Lower Extremities Color Lower Right Color Lower Left Normal Normal Neurological State Oriented to time-place- Alert Moves all extremities person Respiration - General Respiration Rate SpO2 (%) (B/min) 9 95 Final Case Assessment Cardiovascular HR Rhythm NIBP Chest Pain 76 sr 115/68 0 Edema Present Skin color Skin None Normal Warm Dry Circulatory - Right Pulses Dorsalis Pedis Femoral Radial 2 2 2 Scale (0,1,2,3,4,d) Circulatory - Left Pulses Dorsalis Pedis Femoral Radial 2 2 Scale (0,1,2,3,4,d) Circulatory - Lower Extremities Color Lower Right Color Lower Left Normal Normal Neurological State Oriented to time-place- Alert Moves all extremities person Respiration - General Respiration Rate SpO2 (%) (B/min) 9 95 Chronological Log Time Study Chronological Log 7:13:24 Patient arrived via Bed. 7:13:25 Patient Name, D.O.B, / Armband Verified By R.N. 7:18:32 Consent signed by the physician and the patient and verified by the Product Marketer staff. 7:18:33 Pre-op and post- op instructions given; patient acknowledges understanding of instructions. 7:18:34 Verbal Stimulation=2 Physical Stimulation=2 Airway=2 Respiration=2 TOTAL=8. (0=absent, 1=li mited, 2=present) 7:18:36 Allens test performed on the right radial and ulnar artery. Positive 7:18:39 Patient has been NPO for More than 6Hrs. 7:18:40 Skin Breakdown- none per patient 7:18:40 Patient Warmer Placed on the Table. 7:18:42 Moe Prominences Protected 7:18:45 A # 20 IV was noted in the Forearm (left). Grade = 0 7:18:46 Patient arrived on IV Solutions in Left Forearm via Peripheral IV. Pump/Drip Flow using NaC l .9. 7:18:47 History and physical on the chart or being dictated. Assessment: Initial Case, HR=76 BPM, Rhythm=sr, XHIR=776/68 mmhg, Chest Pain=0, Edema=None, [place] r=Normal, Skin = Warm, Dry Right Pulses: Martin Ped=2, Femoral=2, Radial=2 Left Pulses: Martin Ped=2, Femoral=2 7:18:47 Lower Right Extremities: Color=Normal Lower Left Extremities: Color=Normal Neurological: State=Alert, Ox3, GAONA Respiration: Resp=9 B/min, SpO2=95 % Vitals capture started with the following parameters, Patient=Adult, Interval=5 min, Initial Pre xafpc=090 mmHg, 7:18:48 Deflation Rate=5 mmHg, Cuff placed on Left Arm 7:19:23 HR=79 bpm, HMPD=246/65 mmhg, SpO2=95.0 %, Resp=7 B/min, Pain=0, Sd=10, Poole=2 7:23:11 Right Radial and right groin prepped with 2% chlorhexidine, and draped after a 3 min. waitin g time. 7:24:24 HR=75 bpm, LYXS=304/68 mmhg, SpO2=95.0 %, Resp=11 B/min, Pain=0, Sd=10, Poole=2 7:27:47 MD paged 7:28:45 MD arrived. 7:29:31 HR=80 bpm, RWXQ=760/53 mmhg, SpO2=90.0 %, Resp=9 B/min, Pain=0, Sd=10, Poole=2 7:29:45 Reference ECG taken 7:30:00 325 mg ASPIRIN given in lab by Bijan Hebert RN via Subcutaneous. Ordered by Nitin Barros. 7:31:06 1 mg VERSED given in lab by Bijan Hebert RN in Left Forearm via Peripheral IV. Ordered by Nitin Edwards. 7:31:14 Pressure channel 1 zeroed. 7:34:28 HR=83 bpm, MSVA=056/64 mmhg, SpO2=88.0 %, Resp=17 B/min, Pain=0, Sd=10, Poole=2 Time Out. Correct patient, correct procedure, correct physician, labs, allergies, and equipment verified with photo lab manager 7:36:17 team present. Fire risk assesment completed (see hard stop sheet for coding). Time Out Concu rred by MD and individual staff in procedure. 7:36:26 Case Start 7:36:32 1 mg VERSED given in lab by Bijan Hebert RN in Left Forearm via Peripheral IV. Ordered by Nitin Edwards. 7:37:27 50 mcg FENTANYL given in lab by Bijan Hebert RN in Left Forearm via Peripheral IV. Ordered by Nitin Barros. 7:39:27 HR=84 bpm, NIBP=98/70 mmhg, SpO2=91.0 %, Resp=17 B/min, Pain=0, Sd=10, Poole=2 7:39:58 10 mL 1% XYLOCAINE given in lab by Nitin Barros in Right Radial via Subcutaneous. Ordered Nitin Ren. 7:43:12 Access site was Right Radial Artery. A SHEATH, FR6 TRANSRADIAL SLENDER 10CM FR 6 was advanced into the Radial (right) using the Gina antonio 7:43:26 technique. 5 mL (Bolus) RADIAL COCKTAIL given in lab by Nitin Barros in Right Radial via Radial. Using [So lution Name]. 7:43:46 Ordered by Nitin Barros. Reason: Ntg 200mcg Verapamil 2.5mg Heparin 2500U. 7:44:24 HR=80 bpm, GTJG=196/63 mmhg, SpO2=96.0 %, Resp=16 B/min, Pain=0, Sd=10, Poole=2 7:45:45 1 mg VERSED given in lab by Bijan Hebert RN via Peripheral IV. Ordered by Nitin Barros. A CATHETER, FR5 OPTITORQUE RADIAL TIG 4.0 FR 5 was advanced over a wire. OMNIPAQUE, 350 MG, 100M L 100ML 7:45:56 was used for injections. Recorded Pressure: Ao, HR=84, Condition=Condition 1 7:47:16 (Aorta) Ao 87/57/69 7:48:18 The LCA was injected and visualized at various angles. OMNIPAQUE, 350 MG, 100ML 100ML used. 7:49:27 HR=84 bpm, TJJU=077/52 mmhg, SpO2=93.0 %, Resp=13 B/min, Pain=0, Sd=10, Poole=2 7:49:55 The RCA was injected and visualized at various angles. OMNIPAQUE, 350 MG, 100ML 100ML used. 7:50:23 The SVG-LAD was injected and visualized at various angles. OMNIPAQUE, 350 MG, 100ML 100ML us ed. 7:52:05 The SVG-RCA was injected and visualized at various angles. OMNIPAQUE, 350 MG, 100ML 100ML us ed. 7:53:51 Catheter was removed A AL 1 INFINITI CATHETER FR 5 was advanced over a wire. OMNIPAQUE, 350 MG, 100ML 100ML was used for 7:54:08 injections. 7:54:28 HR=80 bpm, OQRR=237/55 mmhg, SpO2=94.0 %, Resp=15 B/min, Pain=0, Sd=10, Poole=2 7:59:27 HR=80 bpm, CJZO=881/60 mmhg, SpO2=94.0 %, Resp=15 B/min, Pain=0, Sd=10, Poole=2 After removing the current catheter a MPA-2 INFINITI CATHETER FR 5 was advanced over a WIRE, EXC HANGE 260CM 8:02:10 3MMJ 260CM. 8:04:28 HR=80 bpm, NIBP=90/57 mmhg, SpO2=96.0 %, Resp=15 B/min, Pain=0, Sd=10, Poole=2 8:05:38 1 mg VERSED given in lab by Bijan Hebert, RN via Peripheral IV. Ordered by Nitin Barros. 8:09:25 HR=77 bpm, AFJV=169/60 mmhg, SpO2=95.0 %, Resp=16 B/min, Pain=0, Sd=10, Poole=2 After removing the current catheter a EBU 3.5 Z2 GUIDE CATHETER FR 6 was advanced over a WIRE, E XCHANGE 8:13:43 260CM 3MMJ 260CM. 8:14:30 HR=75 bpm, BRFL=783/56 mmhg, SpO2=96.0 %, Resp=16 B/min, Pain=0, Sd=10, Pooel=2 8:17:23 A WIRE, RUNTHROUGH NS FLOPPY .014 180CM 180CM was inserted via Radial (right). 8:17:43 5000 units HEPARIN given in lab by Bijan Hebert RN in Left Forearm via Peripheral IV. Order ed by Nitin Barros. 8:19:31 HR=74 bpm, LYYN=255/53 mmhg, SpO2=94.0 %, Resp=15 B/min, Pain=0, Sd=10, Poole=2 8:20:32 Interventional wire has crossed the lesion 8:22:12 Activated Clotting Time Drawn A BALLOON, 2.0 X 15MM EUPHORA 15MM was inserted over WIRE, RUNTHROUGH NS FLOPPY .014 180CM 180CM via 8:22:57 the Radial (right). A BALLOON, 2.0 X 15MM EUPHORA 15MM over a WIRE, RUNTHROUGH NS FLOPPY .014 180CM 180CM in the CIR C 8:24:03 Dist was inflated using a 30 JOSE G INDEFLATOR at 14 jose g for 35 sec. 8:24:28 HR=77 bpm, CSYO=808/50 mmhg, SpO2=96.0 %, Resp=16 B/min, Pain=0, Sd=10, Poole=2 A BALLOON, 2.0 X 15MM EUPHORA 15MM over a WIRE, RUNTHROUGH NS FLOPPY .014 180CM 180CM in the CIR C 8:25:18 Dist was inflated using a 30 JOSE G INDEFLATOR at 14 jose g for 20 sec. 8:26:26 Balloon Removed. A STENT, 2.25 15MM TAMARA 2.25 15MM was advanced through a EBU 3.5 Z2 GUIDE CATHETER FR 6 over a W AUDREY, 8:27:39 RUNTHROUGH NS FLOPPY .014 180CM 180CM. 8:29:12 ACT (Normal Range 90-180) = 382 8:29:27 HR=77 bpm, NIBP=91/62 mmhg, SpO2=96.0 %, Resp=16 B/min, Pain=0, Sd=10, Poole=2 A STENT, 2.25 15MM TAMARA 2.25 15MM was deployed using a 30 JOSE G INDEFLATOR at 12 atmospheres for 1 6 seconds 8:30:23 in the CIRC Dist. 8:32:20 Delivery device removed A BALLOON, 2.25 X 8MM NC EUPHORA 8MM was inserted over WIRE, RUNTHROUGH NS FLOPPY .014 180CM 180 CM 8:33:45 via the Radial (right). 8:34:26 HR=76 bpm, NIBP=99/64 mmhg, SpO2=97.0 %, Resp=16 B/min, Pain=0, Sd=10, Poole=2 A BALLOON, 2.25 X 8MM NC EUPHORA 8MM over a WIRE, RUNTHROUGH NS FLOPPY .014 180CM 180CM in the C IRC 8:35:08 Dist was inflated using a 30 JOSE G INDEFLATOR at 14 jose g for 17 sec. A BALLOON, 2.25 X 8MM NC EUPHORA 8MM over a WIRE, RUNTHROUGH NS FLOPPY .014 180CM 180CM in the C IRC 8:35:39 Dist was inflated using a 30 JOSE G INDEFLATOR at 16 jose g for 14 sec. 8:37:03 Balloon Removed. 8:38:00 Catheter was removed 8:38:24 Case End Assessment: Final Case, HR=76 BPM, Rhythm=sr, USOA=142/68 mmhg, Chest Pain=0, Edema=None, Color= Normal, Skin = Warm, Dry Right Pulses: Martin Ped=2, Femoral=2, Radial=2 Left Pulses: Martin Ped=2, Femoral=2 8:39:15 Lower Right Extremities: Color=Normal Lower Left Extremities: Color=Normal Neurological: State=Alert, Ox3, GAONA Respiration: Resp=9 B/min, SpO2=95 % 8:39:25 Catheter(s) removed without difficulty Radial Compression Device Used. 8 mLs of air placed in BAND, RADIAL COMPRESSION TR SHORT 24 24CM . Affected 8:39:28 hand 96 % O2 saturation. 8:39:29 HR=74 bpm, AKPT=730/54 mmhg, SpO2=98.0 %, Resp=23 B/min, Pain=0, Sd=10, Poole=2 8:39:35 No case complications noted. 8:39:37 Cine recording checked. 8:39:39 Bedside Report will be given. 8:39:41 Implantable Device card placed in patient's chart. 8:39:45 A Left Heart Cath was performed. 8:44:14 600 mg PLAVIX given in lab by Bijan Hebert RN via Oral. Ordered by Nitin Barros. 8:44:29 HR=74 bpm, YBBY=511/57 mmhg, SpO2=97.0 %, Resp=22 B/min, Pain=0, Sd=10, Poole=2 8:49:32 RRBJ=217/59 mmhg, Pain=0, Sd=10, Poole=2 8:50:28 Patient moved to stretcher 8:54:33 Vitals capture stopped. End Study - Contrast Media Used In Study Contrast Total Opened (mL) Total Used (mL) Total Wasted (mL) Omnipaque 225 225 0 End Study - Maximum Contrast Load Max Contrast Load (mL) 417.4 End Study - Radiation Exposure Fluoro Time (minutes) 22.4 End Study - Sheaths Sheaths Pulled By Sheath Hold Time (min) Myah Floyd End Study - Patient Disposition Complications Transferred To Interventional Outcome No Telemetry Bed successful
[2018-01-14] MEDS ORDERED: SODIUM CHLOR 0.9% 1000 ML INJ 1,000 ML IV SCH (09:08)
[2018-01-14] MEDS ORDERED: oxyCODONE/ACETAMINOPHEN 10 MG/325 MG TAB PO PRN (09:15)
[2018-01-14] MEDS ORDERED: oxyCODONE/ACETAMINOPHEN 5 MG/325 MG TAB PO PRN (09:15)
[2018-01-14] MEDS ORDERED: SODIUM CHLORIDE 0.9% FLUSH 10 ML FLUSH IV FLUSH PRN (09:15)
[2018-01-14] MEDS ORDERED: ACETAMINOPHEN 325 MG TAB PO PRN (09:15)
[2018-01-14] MEDS ORDERED: MISC INFORMATION XX ONE (09:15)
--- NOTE | 2018-01-14 09:32 | MA ---
cc: Nitin Barros MD DATE: 01/14/2018 BRIEF HISTORY: Manny Stuart is a 67-year-old man with a very complicated past medical history. He had bypass surgery 04/12/2002. He has an occluded right coronary artery with a vein graft to the distal right. He has an occluded ostial LAD with a vein graft to a diagonal and then Y'ing off the vein graft is a free mammary to the LAD. He has a circumflex, which has never required previous intervention. Lately, he has developed unstable angina. He has been using frequent nitroglycerin patches at home. He was seen in the office and for this reason catheterization was scheduled. DESCRIPTION OF PROCEDURE: The patient was brought to the cardiac catheterization lab in the fasting state. He received additional IV sedation and access was obtained of the right radial artery and a Terumo slender sheath placed. Next, a [place] catheter was used to image both coronary arteries and the graft to the left system. The graft to the right system was visualized, but not optimally so I used a multipurpose catheter to get detailed angiograms of the vein graft to the right coronary artery. The only approachable lesion was a severe distal circumflex lesion. The vessel was small, but feeds a posterolateral branch and was felt to be adequate to permit stenting. I used an EBU 3.5 guiding catheter. 5000 units of heparin was given IV on top of the previous radial cocktail. ACT was adequate. I wired the distal circumflex with a Runthrough wire, predilated with a 2.0 balloon, I then stented it with a 2.25 x 15 mm [place] stent. I then post-dilated the central portion of the stent with a 225 x 8 mm NC balloon at 14 atmospheres and the proximal portion of the stent at 16 atmospheres. Angiography demonstrated marked improvement. Note, the patient had chest pain during balloon inflations, but CLARENCE indicates a good sign that this may be the source of some of his angina. At the end of the procedure, the guiding catheter was removed. The sheath was removed with a Terumo band placed. There were no complications. He was loaded with 600 mg of Plavix at the end of the case. FINDINGS: 1. HEMODYNAMICS: Aortic pressure is only 87/57. He tends to run blood pressures at this level. He has a known ischemic cardiomyopathy. 2. CORONARY ANGIOGRAPHY: The left main coronary artery is large with only 5% irregularities. The LAD is totally occluded at the ostium. The circumflex artery is a large vessel proximally. It gives off a large, normal appearing obtuse marginal branch. Distal circumflex has a 99% stenosis before a small posterolateral branch. The right coronary artery has a 99% proximal disease and total occlusion in the mid segment. 3. GRAFTS: There was a widely patent vein graft to the diagonal and coming off this in a Y fashion as a free mammary to the LAD. Both grafts are widely patent. The distal LAD has mild irregularities. The LAD has mild irregularities. The ostium of the first diagonal branch has a 99% stenosis. The LAD prior to where the left internal mammary inserts is occluded. This leaves a large first septal ceramic coater branch that is trapped with no way to get to it percutaneously and this is probably contributing to his angina. 4. RESULTS OF INTERVENTION: Following stenting of the distal circumflex lesion, a 0% residual stenosis had been achieved with improvement of flow from CLARENCE 2 to CLARENCE 3. CONCLUSIONS: 1. Three vessel coronary artery disease. 2. Three out of three patent bypass grafts. 3. Two areas of ischemia, one at the first septal ceramic coater branch, which is trapped due to ostial disease in the diagonal branch compromising retrograde flow, occlusion of the ostial LAD compromising anterograde flow and occlusion of the mid LAD before the mammary graft compromising retrograde flow. 4. Critical stenosis of the distal circumflex vessel now successfully stented with a small drug-eluting stent. PLAN: The patient will continue on 81 mg aspirin, Plavix and Eliquis. We will stop the baby aspirin at 3 weeks and continue the Plavix and Eliquis long-term. The patient has followup scheduled in the office. Because of the time of day, we will allow the patient to go home later today instead of spending the night. Nitin Barros MD VEW/MIKE , 08:59 AM , 09:31 AM
[2018-01-14] MEDS ORDERED: DEXTROSE 50% IN WATER 50 ML VIAL(D50) IV PUSH PRN (11:30)
[2018-01-14] MEDS ORDERED: GLUCAGON 1 MG/ML VIAL OTHER PRN (11:30)
[2018-01-14] MEDS ORDERED: HIGH DOSE INSULIN NOVOLOG SUPPLEMENTAL SCALE SQ SCH (12:00)
[2018-01-14] MEDS ORDERED: PLAV75TA29 PO (12:24)
[2018-01-14] MEDS ORDERED: CLOP75TA PO (12:25)
[2018-01-14] MEDS ORDERED: SODIUM CHLORIDE 0.9% FLUSH 10 ML FLUSH IV FLUSH SCH (21:00)
--- NOTE | 2018-01-15 07:29 | EKG ---
Date Performed: 01/14/2018 Time Performed: 07:02:50 PTAGE: 67 years EKG: Ventricular pacing. Pacemaker rhythm - no further analysis Abnormal ECG NO PREVIOUS TRACING DOCTOR: Jose Antonio Chiu Interpretating Date/Time 01/15/2018 07:25:50
[2018-01-15] MEDS ORDERED: CLOPIDOGREL 75 MG TAB PO SCH (09:00)
[2018-01-15] MEDS ORDERED: ASPIRIN 81 MG CHEW TAB PO SCH (09:00)
== END 2018-01-14 13:00 | disposition home or self-care (01) ==
LOC: HDOC 05:58 → HDIC 05:59 → HDOC 13:00
PROVIDERS: ATTEND Internal Medicine Cardiovascular Disease
DX: I25.110 Atherosclerotic heart disease of native coronary artery with unstable angina pectoris (principal); I25.5 Ischemic cardiomyopathy; I50.20 Unspecified systolic (congestive) heart failure; I47.2 Ventricular tachycardia; E11.9 Type 2 diabetes mellitus without complications; Z79.84 Long term (current) use of oral hypoglycemic drugs
CPT/HCPCS: 80048; 85002; 85025; 85610; 85730; 92928; 93005; 93455; 99152; 99153; C1725; C1769; C1876; C1887; C1893; J1644; J1815; J2250; J3010; Q9967